=== PATIENT | male | born 1935 | race Caucasian/White ===

== ENCOUNTER 2019-04-29 18:24 | Inpatient (IN) | payer MEDICARE ==
[~2019-04-29] VITALS: Ht 182.9 cm; Wt 107.0 kg
[~2019-04-29 18:24] MED LIST: COREG25 MG PO; LASIX20 MG PO; PERCOCET 10/3251 TA1 PO; PRAVACHOL40 MG PO; PRILOSEC20 MG PO; PRINIVIL20 MG PO; ROBAXIN500 MG PO; XARELTO10 MG PO
[2019-04-29 21:14] VITALS: BP 120/65; BMI 32.1
[2019-04-29 21:50] VITALS: BP 120/65
[2019-04-29] MEDS ORDERED: ZANAFLEX4 MG PO (23:22)
[2019-04-29] MEDS ORDERED: HYDROCODON-ACE1 EA10 PO (23:23)
[2019-04-29] MEDS ORDERED: BUMETANIDE0.5 MG PO (23:24)
[2019-04-30 06:58] LABS: BASOPHILS 0.4 % (0-2); HEMATOCRIT 31.8 % (42.0-54.0); HEMOGLOBIN 9.4 g/dL (13.5-17.5); IMMATURE GRANULOCYTES 0.1 % (0-5); LYMPHOCYTES 16.4 % (15-50); MCH 24.3 pg (26.0-34.0); MCHC 29.6 g/dL (31.0-37.0); MCV 82.2 fL (80.0-100.0); MEAN PLATELET VOLUME 9.3 fL (7.4-10.4); MONOCYTES 6.6 % (2-11); NEUTROPHILS 73.5 % (40-80); PLATELET COUNT 289 10x3/uL (130-400); RBC 3.87 10x6/uL (4.20-6.10); RDW 19.1 % (11.5-14.5)
[2019-04-30 07:00] VITALS: BP 180/66
[2019-04-30 07:06] LABS: ANION GAP 10.3 mmol/L (8-16); CALCIUM 8.5 mg/dL (8.5-10.1); CARBON DIOXIDE 30.4 mmol/L (21.0-32.0); CREATININE - SERUM 1.2 mg/dL (0.6-1.3); POTASSIUM - SERUM 4.7 mmol/L (3.5-5.1)
[2019-04-30 09:37] VITALS: Ht 182.9 cm; Wt 107.0 kg
[2019-04-30 19:32] VITALS: BP 122/57
[2019-05-01 10:08] VITALS: BP 143/66
[2019-05-01 19:27] VITALS: BP 109/61
[2019-05-02 07:05] LABS: BASOPHILS 0.3 % (0-2); EOSINOPHILS 4.2 % (0-7); HEMATOCRIT 30.4 % (42.0-54.0); LYMPHOCYTES 16.9 % (15-50); MCH 23.9 pg (26.0-34.0); MCHC 29.6 g/dL (31.0-37.0); MCV 80.9 fL (80.0-100.0); MEAN PLATELET VOLUME 9.1 fL (7.4-10.4); MONOCYTES 6.7 % (2-11); NEUTROPHILS 71.9 % (40-80); PLATELET COUNT 278 10x3/uL (130-400); RBC 3.76 10x6/uL (4.20-6.10); RDW 19.2 % (11.5-14.5); WBC 7.2 10x3/uL (4.8-10.8)
[2019-05-02 07:23] LABS: ANION GAP 9.3 mmol/L (8-16); CREATININE - SERUM 1.2 mg/dL (0.6-1.3); POTASSIUM - SERUM 4.3 mmol/L (3.5-5.1)
[2019-05-02 08:14] VITALS: BP 131/92
[2019-05-02 20:52] VITALS: BP 416/59
[2019-05-03 07:52] VITALS: BP 135/67
[2019-05-03 21:04] VITALS: BP 112/57
[2019-05-04 06:19] LABS: BASOPHILS 0.5 % (0-2); HEMATOCRIT 29.3 % (42.0-54.0); HEMOGLOBIN 8.6 g/dL (13.5-17.5); IMMATURE GRANULOCYTES 0.2 % (0-5); LYMPHOCYTES 18.8 % (15-50); MCH 24.3 pg (26.0-34.0); MCHC 29.4 g/dL (31.0-37.0); MCV 82.8 fL (80.0-100.0); MEAN PLATELET VOLUME 9.3 fL (7.4-10.4); MONOCYTES 9.2 % (2-11); NEUTROPHILS 66.3 % (40-80); PLATELET COUNT 301 10x3/uL (130-400); RBC 3.54 10x6/uL (4.20-6.10); RDW 19.7 % (11.5-14.5); WBC 6.7 10x3/uL (4.8-10.8)
[2019-05-04 06:47] LABS: ANION GAP 9.9 mmol/L (8-16); CALCIUM 8.2 mg/dL (8.5-10.1); CARBON DIOXIDE 32.5 mmol/L (21.0-32.0); CREATININE - SERUM 1.3 mg/dL (0.6-1.3); POTASSIUM - SERUM 4.4 mmol/L (3.5-5.1)
[2019-05-04 07:57] VITALS: BP 147/67
[2019-05-04 22:06] VITALS: BP 133/66
[2019-05-05 08:59] VITALS: BP 147/65
[2019-05-05 19:29] LABS: ERYTHROCYTE SEDIMENTATION RATE 63 mm/hr (0-20)
[2019-05-05 20:18] VITALS: BP 137/69
[2019-05-06 06:36] LABS: BASOPHILS 0.4 % (0-2); EOSINOPHILS 4.9 % (0-7); HEMATOCRIT 30.1 % (42.0-54.0); HEMOGLOBIN 8.9 g/dL (13.5-17.5); LYMPHOCYTES 21.3 % (15-50); MCH 24.3 pg (26.0-34.0); MCHC 29.6 g/dL (31.0-37.0); MEAN PLATELET VOLUME 9.4 fL (7.4-10.4); MONOCYTES 8.6 % (2-11); NEUTROPHILS 64.8 % (40-80); PLATELET COUNT 268 10x3/uL (130-400); RBC 3.67 10x6/uL (4.20-6.10); RDW 19.8 % (11.5-14.5); WBC 6.9 10x3/uL (4.8-10.8)
[2019-05-06 06:48] LABS: ANION GAP 11.6 mmol/L (8-16); CALCIUM 8.1 mg/dL (8.5-10.1); CARBON DIOXIDE 28.6 mmol/L (21.0-32.0); CREATININE - SERUM 1.7 mg/dL (0.6-1.3); POTASSIUM - SERUM 4.2 mmol/L (3.5-5.1)
[2019-05-06 11:25] VITALS: BP 137/64
[2019-05-06 20:00] VITALS: BP 109/45
[2019-05-07 00:36] VITALS: BP 109/45
[2019-05-07 08:00] VITALS: BP 136/59
[2019-05-07 21:00] VITALS: BP 116/50
[2019-05-08 08:00] VITALS: BP 124/50
[2019-05-08 20:00] VITALS: BP 107/34
[2019-05-09 06:43] LABS: BASOPHILS 0.3 % (0-2); HEMATOCRIT 28.8 % (42.0-54.0); HEMOGLOBIN 8.5 g/dL (13.5-17.5); IMMATURE GRANULOCYTES 0.1 % (0-5); MCH 24.3 pg (26.0-34.0); MCHC 29.5 g/dL (31.0-37.0); MCV 82.3 fL (80.0-100.0); MEAN PLATELET VOLUME 9.5 fL (7.4-10.4); MONOCYTES 8.8 % (2-11); NEUTROPHILS 68.8 % (40-80); PLATELET COUNT 229 10x3/uL (130-400); RDW 20.4 % (11.5-14.5); WBC 7.2 10x3/uL (4.8-10.8)
[2019-05-09 06:49] LABS: ANION GAP 11.6 mmol/L (8-16); CALCIUM 8.2 mg/dL (8.5-10.1); CARBON DIOXIDE 29.1 mmol/L (21.0-32.0); CREATININE - SERUM 1.6 mg/dL (0.6-1.3); POTASSIUM - SERUM 4.7 mmol/L (3.5-5.1)
[2019-05-09 09:48] VITALS: BP 131/55
--- NOTE | 2019-05-09 16:47 | RHP ---
PATIENT: RENA BLOOD MEDICAL RECORD: [id number] ACCOUNT: [id number] LOCATION:[id number] : 37 ADMISSION DATE: 04/29/19 REHABILITATION HISTORY AND PHYSICAL EXAMINATION POST ADMISSION PHYSICIAN EXAMINATION ADMITTING DIAGNOSIS: Disuse myopathy. HISTORY OF PRESENT ILLNESS: The patient is a gentleman who is admitted secondary to a draining left hip wound. He has got a history of previous left FATOUMATA by Dr. Lenny Goodman and developed acetabular protrusion and underwent a revision of total hip by Dr. Chatterjee at [facility] in 2016. He stated that he has had chronic pain in this left hip since then. His incision healed well without difficulty, but he reported that the pain had been much worse a few days prior to his acute hospital admit on 04/16 with inability to bear weight. He has also noticed some drainage from his hip. He has a history of chronic left lower extremity edema with draining venous stasis ulcers on his leg. He also has a history of porcine aortic valve replacement and is currently not on any anticoagulation. He underwent an I&D of the area on 04/18 with purulent drainage from the area with complications of uncontrolled bleeding requiring transfusion as well as packing and wound closure with a QuikClot sponge placed and arterial clamp having to be placed. In the OR, he did receive 3 units of blood. He was taken back to the OR on 04/21 for I&D of the left hip wound. hardware retention with hematoma debrided from the area after a QuikClot sponge removed. He has had prolonged hospitalizations, has had received both PT and OT with recommendations of acute inpatient rehab prior to his discharge home. He has had operative complications of bleeding the need to be continued monitor closely. He also will need to watch his blood values closely. He has also been placed on subQ Lovenox. He has got proximal muscle weakness, balance deficits, decreased activity tolerance, decreased range of motion, decreased strength, gait disturbance, limited safety awareness. He has got medically complexity for risk of falls. He has got low endurance and shuffling gait. He fatigues easily. He has got inability to take care of himself and he has his 's caretakers and self-care deficits. These are on barriers to his discharge home. He lives at home with his , assists with her care, was independent with ADLs and mobility prior to this. He is currently set up for total assist with ADLs and mod assist to total assist with mobility. He and his family plan for him to return home as close to his prior level of functioning as possible. COMORBIDITIES: Include arthritis, acute anxiety, acute pain, coronary artery disease, hyperlipidemia, hypertension, prostate cancer, gastroesophageal reflux disease. PAST MEDICAL HISTORY: Significant for anxiety, arthritis, coronary artery disease, prostate cancer, gastroesophageal reflux disease, hypertension and hyperlipidemia. PAST SURGICAL HISTORY: Includes aortic valve replacement, coronary artery bypass grafting, inguinal hernia repair, back and spinal surgery, hip revision. ALLERGIES: PENICILLIN, SOMA, AND FLOMAX. CURRENT MEDICATIONS: Include nystatin powder to apply b.i.d., he is on Zanaflex 4 mg as needed, he is on tetracycline 500 mg every 12 hours, he is on Pravachol 40 mg daily, enoxaparin 40 mg daily subcutaneous, Colace 100 mg daily, Bumex 1 HISTORY AND PHYSICAL [id number] BLOOD,RENA mg daily, aspirin 81 mg daily, Protonix 40 mg daily, polyethylene glycol 17 grams in 8 ounces of water daily, Radford 10/325 one tab every 8 hours p.r.n., and Coreg 25 mg b.i.d. with meals. HABITS: No alcohol or tobacco use. FAMILY HISTORY: Noncontributory. SOCIAL HISTORY: The patient hopes to return back home and get to his prior level of functioning and be able to take care of his . REVIEW OF SYSTEMS: GENERAL: Does complain of weakness and fatigue. HEENT: Denies cold, cough, or congestion. CARDIOVASCULAR: Denies any chest pain. PHYSICAL EXAMINATION: VITAL SIGNS: Stable, afebrile. GENERAL: A somewhat obese gentleman in no acute distress, alert upon exam. HEENT: Normocephalic and atraumatic. Mucosa moist. NECK: Supple. No lymphadenopathy. LUNGS: Clear at this time. No wheezing, rhonchi or rales. HEART: Regular rate and rhythm. He does have a noted systolic click. ABDOMEN: Soft, benign and nondistended. Positive bowel sounds times 4. EXTREMITIES: Does have a normal postop swelling and dressing in place. NEUROLOGIC: He does have noted proximal muscle weakness. LABORATORY DATA: His white count is 8000, H&H of 9.4 and 31.8 and platelet count was noted to be 289. Sodium 141, potassium 4.7, BUN and creatinine of 31 and 1.2, and blood sugar is noted to be 118. 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 The patient has potential to make improvement. We instituted the following multidisciplinary therapies including but not limited to physical, occupational, respiratory, speech, nutritional services, prosthetics and orthotics. Given his complex medical condition and risks for more complications, rehabilitation services cannot be provided at a low level of care such as skilled nurse facility. PLAN: 1. Admit to [facility] for intensive inpatient therapy to include the following disciplines; A. Physical therapy to improve gait, all transfer skills and bed mobility to a modified independent level. B. Occupational therapy to a modified independent level. C. Case management to assist with discharge planning and placement options. D. Nutrition to assist with nutritional needs. E. Rehabilitation nursing to assist in monitoring the patient's underlying medical conditions and to assist with any type of bowel or bladder management. 2. The patient's current medication and medical care will be continued. 3. The patient will be placed on standard fall precautions. 4. Watch his H&H closely. 5. I will check him again in the a.m. HISTORY AND PHYSICAL [id number] CAITIERENA TRANSINT:[id number] Voice Confirmation ID: [id number] DOCUMENT ID: [id number] 05/02/2019 Edited for esperanza KIMBALL. REHANA notes whether there has been none or any medical/functional change since admission: - No change since preadmission screen. REHANA attests patient continues to be appropriate for IRF: - Continues to be appropriate. LES SANDERSON MD at 1647 CC: [id number] DICTATION DATE: 04/30/19 1235 DESTINATION IMAGINATION COORDINATOR: 04/30/19 1330 ADM IN [address] [id number] [place] [address]
[2019-05-09 20:41] VITALS: BP 130/66
[2019-05-10 15:02] VITALS: BP 130/46
[2019-05-11 00:07] VITALS: BP 96/42
[2019-05-11 08:55] LABS: BASOPHILS 0.3 % (0-2); EOSINOPHILS 4.4 % (0-7); HEMATOCRIT 31.6 % (42.0-54.0); HEMOGLOBIN 9.4 g/dL (13.5-17.5); IMMATURE GRANULOCYTES 0.2 % (0-5); LYMPHOCYTES 22.4 % (15-50); MCH 24.2 pg (26.0-34.0); MCHC 29.7 g/dL (31.0-37.0); MCV 81.2 fL (80.0-100.0); MEAN PLATELET VOLUME 9.3 fL (7.4-10.4); MONOCYTES 8.1 % (2-11); NEUTROPHILS 64.6 % (40-80); PLATELET COUNT 233 10x3/uL (130-400); RBC 3.89 10x6/uL (4.20-6.10); RDW 20.2 % (11.5-14.5); WBC 6.6 10x3/uL (4.8-10.8)
[2019-05-11 09:04] LABS: ANION GAP 10.3 mmol/L (8-16); CALCIUM 8.6 mg/dL (8.5-10.1); CARBON DIOXIDE 30.4 mmol/L (21.0-32.0); CREATININE - SERUM 1.6 mg/dL (0.6-1.3); POTASSIUM - SERUM 4.7 mmol/L (3.5-5.1)
[2019-05-11 09:36] VITALS: BP 135/58
[2019-05-11 21:20] VITALS: BP 133/65
[2019-05-12 09:21] VITALS: BP 126/60
[2019-05-12] MEDS ORDERED: HYDROCODON-ACE1 EA10 PO (10:41)
[2019-05-12] MEDS ORDERED: ASPIRIN EC81 M1 PO (10:42)
== END 2019-05-12 18:36 | disposition home health service (06) | DRG 93 ==
LOC: D.REHAB 18:24
PROVIDERS: Orthopaedic Surgery; ADMIT Emergency Medicine; ATTEND Emergency Medicine
DX: G72.89 Other specified myopathies (principal); I25.10 Atherosclerotic heart disease of native coronary artery without angina pectoris; E78.5 Hyperlipidemia, unspecified; K21.9 Gastro-esophageal reflux disease without esophagitis; C61 Malignant neoplasm of prostate; F41.9 Anxiety disorder, unspecified; M19.90 Unspecified osteoarthritis, unspecified site; R26.9 Unspecified abnormalities of gait and mobility; Z95.1 Presence of aortocoronary bypass graft; I10 Essential (primary) hypertension